=== PATIENT | male | born 1945 | race Caucasian/White ===

== ENCOUNTER 2017-10-05 06:06 | Inpatient (IN) | payer MEDICARE, BC ==
[~2017-10-05] VITALS: Ht 167.6 cm; Wt 117.5 kg
--- NOTE | ~2017-10-05 | PN ---
PATIENT:JASMYN MCKEON MEDICAL RECORD: [id number] LOCATION:MALINDA Albrecht112 ADMISSION DATE: 10/05/17 PROGRESS NOTE DATE OF SERVICE: 10/07/2017 SUBJECTIVE: The patient's case was discussed with staff. He has no new complaint. OBJECTIVE: The patient is in good behavioral control with limited insight about his condition. He tolerates his medicines well. ASSESSMENT: No change in diagnoses. PLAN: Current medicines have been reviewed. The patient has some grandiose ideas that sound very much delusional. 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 He would likely benefit from a mood stabilizer and I have prescribed Depakote at a dose of 500 mg twice daily. TRANSINT:[id number] Voice Confirmation ID: [id number] DOCUMENT ID: [id number] ONEYDA HAWTHORNE MD at 0822 CC: [id number] DICTATION DATE: 10/07/17 1208 LABORER/GRADE CHECK: 10/07/[address] [facility] [address] [place] [address]
--- NOTE | ~2017-10-05 | PN ---
PATIENT:JASMYN MCKEON MEDICAL RECORD: [id number] LOCATION:MALINDA Albrecht112 ADMISSION DATE: 10/05/17 PROGRESS NOTE DATE OF SERVICE: 10/11/2017 SUBJECTIVE: The patient again states he is anxious to go home. OBJECTIVE: As mentioned yesterday, the patient scored 14/30 on the [facility] Mental Status exam. This indicates a very severe level of impairment. The patient will require constant supervision and assistance with ordinary activities of daily living. On exam today, the patient's mood is fairly pleasant. Affect is shallow. Speech tends to be tangential and oblique at times. Content of thought is negative for overt psychosis. Sensorium unchanged. ASSESSMENT: No change in diagnosis. PLAN: 1. Staff will continue to coordinate with family regarding aftercare plans. 2. We will introduce Aricept. 3. Continue supportive therapy. 4. Possible discharge tomorrow. TRANSINT:[id number] Voice Confirmation ID: [id number] DOCUMENT ID: [id number] ARIANA PRICE III, MD at 2048 CC: [id number] DICTATION DATE: 10/11/17 1144 ZIPPER CUTTER: 10/11/17 1309 ADM IN [facility] [address] [place] [address]
--- NOTE | ~2017-10-05 | PSY ---
PATIENT NAME:JASMYN MCKEON MEDICAL RECORD: [id number] : 49 LOCATION:MALINDA Ambrocio1126 ADMISSION DATE: 10/05/17 ACCOUNT: [id number] PSYCHIATRIC EVALUATION DATE OF EVALUATION: 10/05/17 IDENTIFYING DATA: This is the first Prison admission for this 71-year-old white male. CHIEF COMPLAINT: "My claims I was going to kill her." HISTORY OF PRESENT ILLNESS: This patient presented to the Emergency Department at [facility]. Records from their documented the fact that the patient threatened to kill himself and threatened to "carve up" his 's face. The patient was disorganized and confused at the time of assessment at [facility] and was transferred here for evaluation and inpatient admission. The patient cannot give a very coherent history this morning. Apparently, he has been treated for depression in the past, but other details regarding his previous psychiatric history are not currently known. He states that he does live with his and that they have been for 30 years and that nothing like this has ever happened before. He states that she has suddenly begun making strange accusations against him. However, this is not consistent with the documented medical record. The patient did agree to come for admission voluntarily, but upon arriving here, he began to state that he wanted to leave immediately. Staff noted that he was very disheveled, confused, and disjointed in his speech. PAST MEDICAL HISTORY: The patient evidently has a past history of coronary artery disease as well as hyperlipidemia, hypertension, and type 2 diabetes as well as possible COPD. The patient had been previously treated with Cymbalta, but he states he is no longer taking this medication. ALLERGIES: INCLUDE IMDUR, METHYLPREDNISOLONE, AMIODARONE. FAMILY HISTORY: Noncontributory. 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 Initially, he stated that he had this occupation in [place], [place] and had not ever done this kind of work here in [place]. He later stated that he moved here 30 years ago and was a director microbiology in [place], but he did not specify where. He claims that he has 3 children with his , but "we only admit to 2 of them." He did not explain what he meant by this. The patient denies alcohol abuse or drug abuse. MENTAL STATUS: On exam, the patient is very disheveled. He seems confused about the purpose of the interview. As soon as he sits down (he walks with a walker), he asks if he can take his shirt off. Mood is somewhat anxious. Affect is peculiar and distant. Speech is tangential. The patient exhibits latency in his speech from time to time. Content of thought according to documentation is positive for recent suicidal and homicidal ideation. On sensorium testing, the patient is aware that he is in [facility] in [place]. He is not clear about the date. Concentration and intermediate recall both are very poor. DIAGNOSTIC IMPRESSION: AXIS I: Subacute delirium - rule out major depression - recurrent. AXIS II: Deferred. AXIS III: Hypertension, coronary artery disease, hyperlipidemia, gastroesophageal reflux disease, chronic obstructive pulmonary disease, type 2 diabetes. AXIS IV: Moderate. AXIS V: 36. PLAN: 1. The patient is admitted for further medical and psychiatric workup. 2. Diet and activities as tolerated. 3. Supportive therapy. TRANSINT:[id number] Voice Confirmation ID: [id number] DOCUMENT ID: [id number] ARIANA PRICE III, MD at 0932 CC: [id number] DICTATION DATE: 10/05/17 105 INFORMATION SECURITY MANAGER: 10/05/17 1212 [facility] IN [place] [id number] [place] [id number]
--- NOTE | ~2017-10-05 | PN ---
PATIENT:JASMYN MCKEON MEDICAL RECORD: [id number] LOCATION:MALINDA Mckeon ADMISSION DATE: 10/05/17 PROGRESS NOTE DATE OF SERVICE: 10/10/2017 SUBJECTIVE: The patient states he hopes he can go home soon. OBJECTIVE: The patient did undergo neuropsychological testing with Dr. Richards. He was administered the [facility] Mental Status exam. He did very poorly, scoring only 14 out of 30. In view of his high premorbid intelligence, this represents severe impairment. Recommendation is for him to remain in a supervised setting. Family will be meeting with staff tomorrow or the next day regarding discharge planning. On exam, mood is fairly pleasant. Affect is for the most part bland. Speech tends to be somewhat tangential at times. Content of thought is negative for overt psychosis. On sensorium testing, the patient is oriented to person and place, but not as to time. Intermediate and short-term recall as well as concentration show considerable deficits. ASSESSMENT: Alzheimer's dementia with behavioral disturbance. PLAN: 1. Continue current medication. 2. Continue supportive therapy. TRANSINT:[id number] Voice Confirmation ID: [id number] DOCUMENT ID: [id number] ARIANA PRICE III, MD at 2123 CC: [id number] DICTATION DATE: 10/10/17 1237 EDGER OPERATOR: 10/10/17 1429 ADM IN [place] [id number] [place] [address]
--- NOTE | ~2017-10-05 | PN ---
PATIENT:JASMYN MCKEON MEDICAL RECORD: [id number] LOCATION:MALINDA Albrecht112 ADMISSION DATE: 10/05/17 PROGRESS NOTE DATE OF SERVICE: 10/06/2017 SUBJECTIVE: The patient's case was discussed with staff. He has no new complaint. OBJECTIVE: The patient is in good behavioral control with limited insight about his condition. He generally tolerates his medicines well. He did not sleep well last night. ASSESSMENT: No change in diagnoses. PLAN: Current medicines have been reviewed. They will be maintained. I am going to start the patient on trazodone for sleep consolidation. TRANSINT:[id number] Voice Confirmation ID: [id number] DOCUMENT ID: [id number] ONEYDA HAWTHORNE MD at 1936 CC: [id number] DICTATION DATE: 10/06/17 1436 EXPEDITER SERVICE ORDER: 10/06/17 1504 ADM IN [place] [id number] [place] [id number]
--- NOTE | ~2017-10-05 | DS ---
PATIENT:JASMYN MCKEON :49 MEDICAL RECORD: [id number] DISCHARGE SUMMARY ADMISSION DATE: 10/05/17 DISCHARGE DATE: 10/12/17 DATE OF ADMISSION: 10/05/2017 DATE OF DISCHARGE: 10/12/2017 HISTORY: The patient was brought to the Emergency Department at [facility] by law enforcement. The patient had reportedly threatened to kill himself and also to assault his . The patient had wandered away from home and was subsequently apprehended. At the time of initial presentation, the patient was incapable of giving any kind of coherent history. Because of obvious cognitive deterioration and possible threat to self and others, the patient was admitted. For further details, please see previously dictated history. COURSE IN THE HOSPITAL: The patient was examined by Dr. Mayo. She noted the presence of sleep apnea, coronary artery disease, atrial fibrillation, hypertension, and arthritis. Following admission, the patient continued to show considerable confusion. He was started on Depakote for control of his mood swings and agitation. Initial dose was 250 mg twice a day, but this achieved a subtherapeutic blood level of only 21 and dose was advanced to 500 mg twice a day prior to discharge. The patient has a diagnosis of diabetes and was maintained on metformin 1000 mg twice a day. For his dementing symptoms, the patient was started on Aricept 10 mg daily. He was given trazodone 100 mg at bedtime for insomnia. Pepcid 20 mg daily for gastritis. He was also maintained on Plavix 75 mg daily, Crestor 20 mg daily, Colace 100 mg b.i.d., Pradaxa 150 mg b.i.d. The patient did undergo neuropsychological testing. He scored only 14 out of 30 on the [facility] Mental Status Exam, indicating a very severe level of impairment. Recommendation was made to the patient's family and associates that he be kept in a supervised situation on a [id number] basis. By the time of discharge, the patient was felt to be stable enough to return to a supervised setting under the care of family and others. FINAL DIAGNOSES: AXIS I: Alzheimer dementia with behavioral disturbance. AXIS II: No diagnosis. AXIS III: Hypertension, coronary artery disease, hyperlipidemia, gastroesophageal reflux disease, chronic obstructive pulmonary disease, type 2 diabetes. AXIS IV: Moderate. AXIS V: 45. PLAN: 1. The patient is discharged to care of family and in-home aides. 2. He is to follow up with his primary care physician. 3. Diet and activities as tolerated. 4. Family understands that the patient is to remain in a supervised setting at all times. TRANSINT:[id number] Voice Confirmation ID: [id number] DOCUMENT ID: [id number] DISCHARGE SUMMARY REPORT [id number] JASMYN MCKEON III, ARIANA Hobbs MD at 0948 CC: [id number] DICTATION DATE: 10/12/17 1201 SYSTEMS MANAGEMENT CONSULTANT: 10/12/17 1252 DIS IN 10/12/17 [facility] [address] [place] [address]
--- NOTE | ~2017-10-05 | PN ---
PATIENT:JASMYN MCKEON MEDICAL RECORD: [id number] LOCATION:MALINDA Mckeon ADMISSION DATE: 10/05/17 PROGRESS NOTE DATE OF SERVICE: 10/09/2017 SUBJECTIVE: No new complaint. OBJECTIVE: Staff report the patient has been fairly cooperative. They notice a number of compulsive behaviors such as taking a shower 4 times a day. On exam, the patient is friendly and pleasant. He continues to exhibit confusion in terms of short term recall and concentration. Affect is somewhat peculiar. Content of thought shows moderate grandiose ideation. The patient is oriented to person and to place. ASSESSMENT: No change in diagnosis. PLAN: 1. Maintain current medications. 2. We will get neuropsychological testing. TRANSINT:[id number] Voice Confirmation ID: [id number] DOCUMENT ID: [id number] ARIANA PRICE III, MD at 0435 CC: [id number] DICTATION DATE: 10/09/17 1159 ASSEMBLER CARDS AND ANNOUNCEMENTS: 10/09/17 1222 ADM IN [place] [address] [place] [address]
[2017-10-05] MEDS ORDERED: BUMEX 1 MG TAB1 MG PO (09:26)
[2017-10-05] MEDS ORDERED: CLOTRIMAZOLE-BE30 ML TOPICAL (09:27)
[2017-10-05] MEDS ORDERED: PLAVIX75 MG PO (09:27)
[2017-10-05] MEDS ORDERED: CINNAMON500 MG PO (09:27)
[2017-10-05] MEDS ORDERED: COENZYME Q10100 MG PO (09:28)
[2017-10-05] MEDS ORDERED: ARTHROTEC 501 TAB.EC PO (09:28)
[2017-10-05] MEDS ORDERED: AVODART0.5 MG PO (09:29)
[2017-10-05] MEDS ORDERED: COLACE100 MG PO (09:29)
[2017-10-05] MEDS ORDERED: CYMBALTA60 MG PO (09:29)
[2017-10-05] MEDS ORDERED: INVOKANA300 MG PO (09:30)
[2017-10-05] MEDS ORDERED: PEPCID20 MG PO (09:30)
[2017-10-05] MEDS ORDERED: TRILIPIX135 MG PO (09:30)
[2017-10-05] MEDS ORDERED: LYRICA300 MG PO (09:34)
[2017-10-05] MEDS ORDERED: LIDOCAINE50 GM TOPICAL (09:34)
[2017-10-05] MEDS ORDERED: METFORMIN HCL500 M1 PO (09:35)
[2017-10-05] MEDS ORDERED: TOPROL XL100 MG PO (09:36)
[2017-10-05] MEDS ORDERED: NITROQUICK0.4 MG SL (09:37)
[2017-10-05] MEDS ORDERED: CRESTOR20 MG PO (09:38)
[2017-10-05] MEDS ORDERED: PRADAXA150 MG PO (09:38)
[2017-10-05] MEDS ORDERED: VENTOLIN HFA18 GM INH (09:38)
[2017-10-05] MEDS ORDERED: AMBIEN10 MG PO (09:39)
[2017-10-05 09:57] VITALS: BP 163/88
[2017-10-05 10:11] VITALS: BMI 42.0
[2017-10-05 11:15] LABS: BASOPHILS 0.4 % (0-2); EOSINOPHILS 0.7 % (0-7); HEMOGLOBIN 10.8 g/dL (13.5-17.5); IMMATURE GRANULOCYTES 0.4 % (0-5); LYMPHOCYTES 12.3 % (15-50); MCH 23.1 pg (26.0-34.0); MCHC 30.9 g/dL (31.0-37.0); MCV 74.8 fL (80.0-100.0); MEAN PLATELET VOLUME 9.6 fL (7.4-10.4); NEUTROPHILS 83.2 % (40-80); PLATELET COUNT 142 10x3/uL (130-400); RBC 4.68 10x6/uL (4.20-6.10); RDW 22.9 % (11.5-14.5); WBC 5.6 10x3/uL (4.8-10.8)
[2017-10-05 11:29] LABS: ALBUMIN 2.9 g/dL (3.4-5.0); ALKALINE PHOSPHATASE 61 U/L (46-116); ALT (SGPT) 19 U/L (10-68); BILIRUBIN - TOTAL 0.53 mg/dL (0.2-1.3); CALC OSMOLALITY 279 mosm/kg (275-300); CALCIUM 8.8 mg/dL (8.5-10.1); CARBON DIOXIDE 21.3 mmol/L (21.0-32.0); CHLORIDE - SERUM 100 mmol/L (98-107); CHOL - HDL RATIO 5.5 ratio (2.3-4.9); CHOLESTEROL, TOTAL 197 mg/dL (0-200); CREATININE - SERUM 0.8 mg/dL (0.6-1.3); GLUCOSE 239 mg/dL (74-106); HDL CHOLESTEROL 36 mg/dL (32-96); LDL CHOLESTEROL 128 mg/dL (0-100); LDL-HDL RATIO 3.6 ratio (1.5-3.5); POTASSIUM - SERUM 3.5 mmol/L (3.5-5.1); PROTEIN - SERUM 7.3 g/dL (6.4-8.2); SODIUM 137 mmol/L (136-145); THYROID STIMULATING HORMONE 1.51 uIU/mL (0.36-3.74); TRIGLYCERIDE 166 mg/dL (30-200); UREA NITROGEN 8 mg/dL (7-18); eGFR NON AFRICAN AMERICAN > 90 mL/min (90-120)
[2017-10-05 12:39] VITALS: BP 163/88; BMI 42.0
[2017-10-05 14:49] VITALS: Ht 167.6 cm; Wt 117.5 kg
[2017-10-05 20:33] VITALS: BP 145/65
[2017-10-06 07:34] LABS: RAPID PLASMA REAGIN Non Reactive (Non Reactive)
[2017-10-06 07:50] VITALS: BP 106/66
[2017-10-06 08:20] LABS: FOLATE (FOLIC ACID) - SERUM 8.7 ng/mL (>3.0)
[2017-10-06 09:16] LABS: VITAMIN D 25 HYDROXY 37.4 ng/mL (30.0-100.0)
[2017-10-07 07:44] VITALS: BP 147/68
[2017-10-07 19:56] VITALS: BP 105/66
[2017-10-08 07:23] VITALS: BP 158/83
[2017-10-08 19:55] VITALS: BP 130/79
[2017-10-09 07:00] VITALS: BP 118/61
[2017-10-09 21:02] VITALS: BP 118/67
[2017-10-10 07:49] VITALS: BP 120/67
[2017-10-10 15:59] VITALS: BP 103/65
[2017-10-10 20:25] VITALS: BP 119/72
[2017-10-11 09:30] VITALS: BP 112/80
[2017-10-11] MEDS ORDERED: NIFEREX-150 CAP1 CA3 PO (11:58)
[2017-10-11] MEDS ORDERED: PRADAXA150 MG PO (11:58)
[2017-10-11] MEDS ORDERED: Aricept PO (11:58)
[2017-10-11] MEDS ORDERED: DESERYL100 MG PO (11:59)
[2017-10-11] MEDS ORDERED: DEPAKOTE250 MG PO (11:59)
[2017-10-11] MEDS ORDERED: GLUCOPHAGE500 MG PO (12:00)
[2017-10-11 20:02] VITALS: BP 138/72
[2017-10-12 08:03] VITALS: BP 148/80
[2017-10-12] MEDS ORDERED: DEPAKOTE250 MG PO (11:55)
== END 2017-10-12 13:00 | disposition home or self-care (01) | DRG 57 ==
LOC: D.PSYCH 06:06
PROVIDERS: Psychiatry & Neurology Psychiatry
DX: G30.9 Alzheimer's disease, unspecified (principal); F02.81 Dementia in other diseases classified elsewhere, unspecified severity, with behavioral disturbance; R45.851 Suicidal ideations; Z68.41 Body mass index [BMI] 40.0-44.9, adult; F32.9 Major depressive disorder, single episode, unspecified; E11.40 Type 2 diabetes mellitus with diabetic neuropathy, unspecified; E78.5 Hyperlipidemia, unspecified; I25.10 Atherosclerotic heart disease of native coronary artery without angina pectoris; Z95.1 Presence of aortocoronary bypass graft; I10 Essential (primary) hypertension; K21.9 Gastro-esophageal reflux disease without esophagitis; J44.9 Chronic obstructive pulmonary disease, unspecified; I48.91 Unspecified atrial fibrillation; E66.01 Morbid (severe) obesity due to excess calories; G47.00 Insomnia, unspecified; D64.9 Anemia, unspecified; M19.90 Unspecified osteoarthritis, unspecified site; G47.33 Obstructive sleep apnea (adult) (pediatric)

== ENCOUNTER 2019-12-16 19:00 | Inpatient (IN) | payer MEDICARE, BC ==
[~2019-12-16] VITALS: Ht 162.6 cm; Wt 85.1 kg
[~2019-12-16 19:00] MED LIST: AMBIEN10 MG PO; ARTHROTEC 501 TAB.EC PO; AVODART0.5 MG PO; Aricept PO; BUMEX 1 MG TAB1 MG PO; CINNAMON500 MG PO; CLOTRIMAZOLE-BE30 ML TOPICAL; COENZYME Q10100 MG PO; COLACE100 MG PO; CRESTOR20 MG PO; CYMBALTA60 MG PO; DEPAKOTE250 MG PO; DESERYL100 MG PO; GLUCOPHAGE500 MG PO; INVOKANA300 MG PO; LIDOCAINE50 GM TOPICAL; LYRICA300 MG PO; METFORMIN HCL500 M1 PO; NIFEREX-150 CAP1 CA3 PO; NITROQUICK0.4 MG SL; PEPCID20 MG PO; PLAVIX75 MG PO; PRADAXA150 MG PO; TOPROL XL100 MG PO; TRILIPIX135 MG PO; VENTOLIN HFA18 GM INH
[2019-12-16] MEDS ORDERED: DEPAKOTE250 MG PO (19:21)
[2019-12-16] MEDS ORDERED: CARDIZEM30 MG PO (19:21)
[2019-12-16] MEDS ORDERED: AZELASTINE137 MCG/0. NASAL (19:22)
[2019-12-16] MEDS ORDERED: METFORMIN HCL500 M1 PO (19:25)
[2019-12-16] MEDS ORDERED: IPRAT-ALBUT 0.5-3 ML UPD (19:26)
[2019-12-16] MEDS ORDERED: LANTUS INS100 UNITS/ SC (19:27)
[2019-12-16] MEDS ORDERED: AVODART0.5 MG PO (19:27)
[2019-12-16] MEDS ORDERED: CYMBALTA60 MG PO (19:28)
[2019-12-16] MEDS ORDERED: MYCOSTATIN CREA15 GM TOPICAL (19:33)
[2019-12-16] MEDS ORDERED: KLOR-CON M2020 MEQ PO (19:34)
[2019-12-16] MEDS ORDERED: PHENAZOPYRIDIN100 MG PO (19:34)
[2019-12-16] MEDS ORDERED: LYRICA300 MG PO (19:35)
[2019-12-16] MEDS ORDERED: BACTRIM DS TAB1 EAC1 PO (19:37)
[2019-12-16] MEDS ORDERED: TESTOSTERONE CYPIONA IM (19:39)
[2019-12-16 20:10] VITALS: BP 154/83
[2019-12-16 20:40] VITALS: BP 154/83
--- NOTE | 2019-12-16 21:55 | NUR ---
NEW ADMIT TO DOCTOR MARINE FROM [facility] RELATED TO ALTERED MENTAL STATUS AND AGGRESSION. RECEIVED VIA EMS. CALM AND COOPERATIVE UPON ARRIVAL. NO SIGNS OF AGGRESSION. COOPERATIVE WITH ADMIT ASSESSMENT. DENIES ANY THOUGHTS OF SELF HARM AT THIS TIME. HE DOES REFERENCE A TIME WHEN HE PUT A CORD AROUND HIS NECK BUT STATES HE DID IT FOR ATTENTION. HE REQUEST TO A CODE STATUS OF DNR. ADMIT CONSENT RECIEVED FROM "HARSHA". SHE STATES HE HAS BEEN DECLINING RECENTLY. NOT TAKING MEDS. PATIENT IS RESTING IN BED WITH EYES CLOSED AT THIS TIME.
[2019-12-17 00:50] LABS: BILIRUBIN NEGATIVE (NEGATIVE); GLUCOSE 1000 mg/dL (NEGATIVE); KETONE NEGATIVE (NEGATIVE); NITRITE NEGATIVE (NEGATIVE); UROBILINOGEN NORMAL (NORMAL)
--- NOTE | 2019-12-17 02:14 | NUR ---
RESTLESS. NOT SLEEPING.
[2019-12-17 06:21] LABS: BASOPHILS 0.2 % (0-2); EOSINOPHILS 1.3 % (0-7); HEMATOCRIT 37.7 % (42.0-54.0); HEMOGLOBIN 11.3 g/dL (13.5-17.5); IMMATURE GRANULOCYTES 0.2 % (0-5); LYMPHOCYTES 34.2 % (15-50); MCV 86.9 fL (80.0-100.0); MEAN PLATELET VOLUME 9.5 fL (7.4-10.4); MONOCYTES 7.7 % (2-11); NEUTROPHILS 56.4 % (40-80); PLATELET COUNT 128 10x3/uL (130-400); RBC 4.34 10x6/uL (4.20-6.10); WBC 4.5 10x3/uL (4.8-10.8)
[2019-12-17 07:40] LABS: ALBUMIN 3.4 g/dL (3.4-5.0); ALKALINE PHOSPHATASE 66 U/L (30-120); ALT (SGPT) 15 U/L (10-68); BILIRUBIN - TOTAL 0.37 mg/dL (0.2-1.3); CALC OSMOLALITY 285 mosm/kg (275-300); CALCIUM 9.1 mg/dL (8.5-10.1); CARBON DIOXIDE 26.5 mmol/L (21.0-32.0); CHLORIDE - SERUM 108 mmol/L (98-107); CHOL - HDL RATIO 2.6 ratio (2.3-4.9); CHOLESTEROL, TOTAL 142 mg/dL (0-200); HDL CHOLESTEROL 54 mg/dL (32-96); LDL CHOLESTEROL 61 mg/dL (0-100); LDL-HDL RATIO 1.1 ratio (1.5-3.5); POTASSIUM - SERUM 3.6 mmol/L (3.5-5.1); PROTEIN - SERUM 6.4 g/dL (6.4-8.2); SODIUM 144 mmol/L (136-145); THYROID STIMULATING HORMONE 0.76 uIU/mL (0.36-3.74); TRIGLYCERIDE 139 mg/dL (30-200); UREA NITROGEN 7 mg/dL (7-18); VALPROIC ACID (DEPAKOTE) 36.1 ug/mL (50.0-100.0); eGFR NON AFRICAN AMERICAN 78 mL/min (90-120)
[2019-12-17 07:41] LABS: GLUCOSE 108 mg/dL (74-106)
[2019-12-17 11:40] VITALS: BP 134/53
--- NOTE | 2019-12-17 12:25 | NUR ---
RECEIVED IN HALLWAY OUTSIDE OF NURSES STATION. CALM AND COOPERATIVE WITH CARE AND ASSESSMENT. NO AGITATION OR AGGRESSION. REDIRECT AND REORIENT NEEDED. EATING AT THIS TIME. CONTINUE PLAN OF CARE.
[2019-12-17 14:56] VITALS: Ht 162.6 cm; Wt 85.1 kg
[2019-12-17 20:53] VITALS: BP 142/70
--- NOTE | 2019-12-17 23:27 | NUR ---
RECEIVED IN DAYROOM. SITTING IN A CHAIR WITH PEERS AT HIS SIDE. CALM AND COOPERATIVE WITH CARE AND ASSESSMENT. NO SIGNS OF AGGRESSION. REDIRECT AND REORIENT NEEDED. RESTING IN BED WITH EYES CLOSED AT THIS TIME. CONTINUE PLAN OF CARE.
[2019-12-18 07:14] LABS: RAPID PLASMA REAGIN Non Reactive (Non Reactive)
--- NOTE | 2019-12-18 08:14 | NUR ---
The patient is awake and alert he is pleasant and he has not shown any aggression this am. Provide prescribed meds. Monitor for medication compliance. He ambulates independently. He has poor insight into his situation. Continue POC.
[2019-12-18 09:19] VITALS: BP 118/77
--- NOTE | 2019-12-18 15:00 | NUR ---
Nutrition Follow-up: Diet: Diabetic PO intake: 0-100% x 2 HS snacks recorded Last BM: none since admit x 2 days. WT: 187.6# (12/17/19) Meds noted: metformin, lantus. Labs noted: POC Glu 194(H) Recommend continue current diet. Offer oral nutrition supplements if PO intake poor. RD following.
[2019-12-18 20:03] VITALS: BP 139/72
--- NOTE | 2019-12-19 03:55 | NUR ---
B.) PT IS ALERT AND ORIENTED TO SELF AND PLACE. HE IS ABLE TO AMBULATE WITHOUT ASSIST. HE IS DEMANDING AT TIMES AND COMPLAINS OF TWO PILONIDAL CYSTS, A CYST UNDER HIS LEFT ARMPIT AND A SORE SPOT ON HIS GROIN AREA. HE LATER DEMANDED THAT WE REMOVE THE BATTERY FROM HIS CLOCK IT IS TOO LOUD. I.) PROVIDED PM MEDICATIONS PRESCRIBED. REDIRECT OFTEN. R.) COMPLIANT WITH ALL MEDICATIONS. DIFFICULT TO REDIRECT. P.) WILL CONTINUE TO MONITOR.
--- NOTE | 2019-12-19 08:54 | PSY ---
PATIENT NAME:JASMYN MCKEON MEDICAL RECORD: [id number] : 49 LOCATION:MALINDA Albrecht1135 ADMISSION DATE: 12/16/19 ACCOUNT: [id number] PSYCHIATRIC EVALUATION DATE OF EVALUATION: 12/18/19 The patient was admitted on 12/16/2019. Date of evaluation was 12/17/2019. IDENTIFYING DATA: The patient is a 73-year-old male who appears about his stated age, who was referred to us from [facility]. CHIEF COMPLAINT: Suicidal gesture. HISTORY OF PRESENT ILLNESS: It was reported that the patient had an accidental overdose and had been observed with having a decreased mental decline, increased confusion, and hallucinations, agitation, and aggressiveness. It was observed while the patient was in the ICU being monitored that he wrapped a call light cord around himself and then at one point was observed hitting himself with the call light pillow. During his stay there, he was agitated, restless, was yelling out, getting out of bed repeatedly, wanting to throw himself out the window and then actually had tried to choke himself twice by wrapping a blood pressure cord around his neck and he used a call light to his forehead until it was taken away. The overdose appeared to be most likely benzodiazepines. This patient was found unresponsive by the family in the morning. The patient stated that he had taken four 1 mg Ativan tablets. The patient report indicates that he was lethargic on arrival to the ER and he was given some Narcan with some improvement and then was started on BiPAP and transferred to ICU. 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 PAST MEDICAL HISTORY: The patient has a history of atrial fib, CAD, DM, GERD, hypertension, ALD, arthritis, pseudocholinesterase deficiency, and drug overdose. PAST PSYCHIATRIC HISTORY: The patient reports that he does have a history of anxiety and depression. FAMILY HISTORY: The patient has a family history of lung cancer, heart disease, hypertension, diabetes, and lung cancer. ALLERGIES: IMDUR AND MEDROL. TRAUMA: The patient denies any sexual, emotional, or physical abuse. CURRENT MEDICATIONS: Include, Aricept, Pradaxa, trazodone, Bumex, Plavix, Trilipix, Toprol-XL, NitroQuick, Crestor, Ventolin HFA, Depakote, Cardizem, Glucophage, DuoNeb, insulin 25 units subQ daily, Avodart, Cymbalta, Mycostatin cream, potassium chloride, Lyrica, and testosterone 1 mL IM every 21 days. SOCIAL HISTORY: The patient states that he is . 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 He has 1 grandchild age 21 that lives with him. 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 The patient denies any alcohol, smoking, or recreational drug use. MENTAL STATUS EXAM: The patient is alert and oriented to person, place, time, and situation. The patient's speech is low rate, low tone, low volume. His eye contact is good. His posture is within normal limits. There is some evidence of psychomotor agitation. His mood is depressed and anxious. His affect is flat, blunt, and narrow in range. The patient has some suicidal ideation, does not want to disclose the plan. The patient denies any homicidal ideation or auditory or visual hallucinations. The patient does not exhibit any delusional thought. His general fund of knowledge appears to be appropriate for his education level. His digit span forward is 5; digit span backward is 3. Prominent interpretation is mentally abstract. Judgment and insight are poor. Impulsivity is high. His memory is fair for recent and remote events. His strengths are his ability to communicate his needs. His weakness is his poor psychosocial support and isolation, financial stressors. Assets: Ability to communicate needs Liability: Chronic psychosocial stressors ASSESSMENT: AXIS I: Altered mental status. Major depression, recurrent, severe. AXIS II: None. AXIS III: Arthritis, hypertension, CABG, atrial fib, angina, CAD, dyslipidemia, diabetes, lithotripsy. AXIS IV: Severe stressors, financial and social. AXIS V: Global assessment of functioning is 30. PLAN: At this time, the patient is going to be admitted to the hospital secondary to his aggressive, agitated, confused, and suicidal ideation associated with altered mental status. He will be comprehensively evaluated from both a medical, psychological, and social standpoint. He will be treated with both mood stabilizing and memory enhancing medications. His long-term prognosis is guarded. Dictated By: Elizabeth Huertas APN I have interviewed/examined the above patient and agree with these documented findings. TRANSINT:[id number] Voice Confirmation ID: [id number] DOCUMENT ID: [id number] Dictated By: ELIZABETH HUERTAS I have interviewed/examined the above patient and agree with these documented findings. ONEYDA HAWTHORNE MD at 0854 at 1128 CC: [id number] DICTATION DATE: 12/18/191932 HOSPICE ART THERAPIST: 12/19/19 0018 ADM IN [facility] [address] [place] [address]
[2019-12-19 09:42] VITALS: BP 127/69
--- NOTE | 2019-12-19 13:49 | NUR ---
The patient is awake and alert, he is pleasant and calm. He is interacting with staff and peers and enjoys telling jokes. He denies S.I. He did not sleep well last night. Provide prescribed meds. The patient is compliant with meds. Continue POC.
[2019-12-19 20:19] VITALS: BP 120/75
--- NOTE | 2019-12-20 01:24 | NUR ---
B.) PT IS ALERT AND ORIENTED X4. HE IS CALM AND COOPERATIVE WITH STAFF. HE IS ABLE TO VOICE NEEDS AND WANTS. HE IS ABLE TO AMBULATE WITHOUT ASSIST. I.) PROVIDED PM MEDICATIONS PRESCRIBED. REDIRECT NEEDED. R.) COMPLIANT WITH ALL MEDICATIONS. EASY TO REDIRECT. P.) WILL CONTINUE TO MONITOR.
--- NOTE | 2019-12-20 13:53 | NUR ---
The patient is awake and alert he is calm and he enjoys speaking with staff and the other patients. He ambulates well. 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 He told this nurse he is getting false teeth and he plans to get them soon. Provide prescribed meds. The patient is compliant with meds. Continue POC.
[2019-12-20 14:10] VITALS: BP 111/48
[2019-12-20 20:08] VITALS: BP 119/65
--- NOTE | 2019-12-20 23:20 | NUR ---
PATIENT RECEIVED IN DAYROOM, COMPLIANT WITH MEDS. DENIES S/I. MAKES ALL NEEDS KNOWN. NOT CONFUSED. WILL FOLLOW POC
--- NOTE | 2019-12-21 07:59 | NUR ---
The patient is awake and alert, he is pleasant and calm. He has poor insight into his situation. He has some noted confusion, he has recall of person, place, and time, but he is repetitive in telling some of his sentences. He ambulates independently. Provide prescribed meds. The patient is compliant with meds. He is interactive with staff and peers. Continue POC.
[2019-12-21 09:54] VITALS: BP 125/78
[2019-12-21 20:00] VITALS: BP 102/73
--- NOTE | 2019-12-21 21:50 | NUR ---
RECEIVED IN DAYROOM. SITTING IN A CHAIR WITH PEERS AT HIS SIDE. CALM AND COOPERATIVE WITH CARE AND ASSESSMENT. NO SIGNS OF AGGRESSION. REDIRECT AND REORIENT NEEDED. CONTINUES TO SIT CALMLY IN DAYROOM. CONTINUE PLAN OF CARE.
[2019-12-22 09:18] VITALS: BP 99/60
--- NOTE | 2019-12-22 10:02 | NUR ---
The patient is awake and alert, he denies suicide, but he remains down about COVID-19 interrupting his entire life. He has poor insight into his situation. Provide prescribed meds. He is compliant with meds. He refused his nasal spray. Checked his blood sugar it was 118 and he refused his Lantus. Continue monitoring his mood and behavior. Continue POC.
[2019-12-22 20:06] VITALS: BP 124/63
--- NOTE | 2019-12-22 20:06 | NUR ---
RECEIVED IN DAYROOM. SITTING IN A CHAIR WITH PEERS AT HIS SIDE. CALM AND COOPERATIVE WITH CARE AND ASSESSMENT. NO SIGNS OF AGGRESSION. REDIRECT AND REOREINT NEEDED. CONTINUES TO SIT CALMLY IN DAYROOM. CONTINUE PLAN OF CARE.
--- NOTE | 2019-12-23 12:00 | NUR ---
RECEIVED IN HALLWAY OUTSIDE OF NURSES STATION. CALM AND COOPERATIVE WITH CARE AND ASSESSMENT. NO AGGRESSIVE BEHAVIOR. NO EXIT SEEKING BEHAVIOR. REDIRECT AND REORIENT NEEDED. EATING AT THIS TIME. CONTINUE PLAN OF CARE.
[2019-12-23 19:51] VITALS: BP 107/66
--- NOTE | 2019-12-23 21:09 | NUR ---
RECEIVED IN DAYROOM. MOVING ABOUT IN A WHEELCAHIR SOCIALIZING WITH STAFF AND PEERS. IN GOOD SPIRITS. NO STATEMENTS OF SELF HARM VOICED. ENCOURAGE TO EXPRESS NEEDS. CONTINUES TO BE SOCIAL WITH STAFF AND PEERS. CONTINUE PLAN OF CARE.
[2019-12-24 07:59] LABS: BILIRUBIN NEGATIVE (NEGATIVE); GLUCOSE NEGATIVE (NEGATIVE); KETONE NEGATIVE (NEGATIVE); NITRITE NEGATIVE (NEGATIVE); SPECIFIC GRAVITY 1.015 (1.005-1.020)
[2019-12-24 10:00] VITALS: BP 104/74
--- NOTE | 2019-12-24 12:00 | NUR ---
RECEIVED IN HALLWAY OUTSIDE OF NURSES STATION. CALM AND COOPERATIVE WITH CARE AND ASSESSMENT. NO AGGRESSIVE BEHAVIOR. REDIRECT AND REORIENT NEEDED. EATING AT THIS TIME. CONTINUE PLAN OF CARE.
--- NOTE | 2019-12-24 15:08 | PN ---
PATIENT:JASMYN MCKEON MEDICAL RECORD: [id number] LOCATION:MALINDA Albrecht113 ADMISSION DATE: 12/16/19 PROGRESS NOTE DATE OF SERVICE: 12/23/2019 SUBJECTIVE: The patient's case was discussed with staff. He has no new complaint. OBJECTIVE: The patient has a mildly depressed mood. He denies he would seek to harm himself. He generally is tolerating his medicines well. ASSESSMENT: Major depression. PLAN: The patient denies that he would seek to harm himself. I am going to review medications and we will discontinue the Zoloft and increase the dose of Cymbalta. TRANSINT:[id number] Voice Confirmation ID: [id number] DOCUMENT ID: [id number] ONEYDA HAWTHORNE MD at 1508 CC: [id number] DICTATION DATE: 12/23/19 1541 HYDRAULIC PUNCH PRESS OPERATOR: 12/23/19 8757 ADM IN [facility] [address] [place] [address]
[2019-12-24 20:11] VITALS: BP 114/62
--- NOTE | 2019-12-25 14:20 | NUR ---
The patient is awake and alert, he is pleasant and alert. He ambulates independently. He has not shown any aggression. He has not made any statement about suicidal ideations. 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 Provide prescribed meds. The patient is compliant with meds. Continue POC.
--- NOTE | 2019-12-25 15:44 | NUR ---
Nutrition Follow-up: Diet: Diabetic PO intake: 100% x all Last BM: 12/23/19. Wt: 187.6# (12/22/19); Admit wt: 187.6# (12/17/19) Meds noted: metformin, lantus. Labs noted: 171(H) Recommend continue current diet. RD following.
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
[2019-12-25 20:00] VITALS: BP 100/62
--- NOTE | 2019-12-25 21:02 | NUR ---
RECEIVED IN DAYROOM. SOCIALIZING WITH OTHER PATIENTS. CALM AND COOPERATIVE WITH CARE AND ASSESSMENT. PLEASANT. NO AGGRESSION. REDIRECT AND REORIENT NEEDED. PARTICIPATING IN GROUP AT THIS TIME. CONTINUE PLAN OF CARE.
[2019-12-26 10:11] VITALS: BP 117/76
--- NOTE | 2019-12-26 13:30 | NUR ---
KERRIE SPOKE TO PT'S VEENA ABOUT PT'S CONDITION AND PT'S MD NOT SIGNING THE PAPERS TO DEEM PT INCOMPETENT. KERRIE STATED PT'S MAIN DIAGNOSIS IS MAJOR DEPRESSION WHICH IS PRIMARY TO MILD DEMENTIA. 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 KERRIE EXPLAINED PT IS ORIENTED AND HAS CLEARED UP. KERRIE EDUCATED ON PT NEEDING MONITORING AND MEDICATION MANAGEMENT TO ENSURE PT IS TAKING THE RIGHT MEDICATIONS CORRECTLY. VEENA VERBALIZED UNDERSTANDING OF DISCUSSION. KERRIE SET DISCHARGE FOR TOMORROW AT 11. PT REFUSED OUTPATIENT TREATMENT AND WAS REFERRED BACK TO HIS PCP FOR MEDICATION MANAGEMENT.
--- NOTE | 2019-12-26 14:07 | NUR ---
SW ATTEMPTED TO CALL AND CONTACT ON FACESHEET TO DISCUSS DISCHARGE PLANS.
--- NOTE | 2019-12-26 16:51 | PN ---
PATIENT:JASMYN MCKEON MEDICAL RECORD: [id number] LOCATION:[facility] ADMISSION DATE: 12/16/19 PROGRESS NOTE DATE OF SERVICE: 12/25/2019 SUBJECTIVE: The patient's case was discussed with staff. He has no new complaint. OBJECTIVE: The patient is more cognizant today. He has limited insight about his social situation, but his cognition has improved and he is fully oriented. ASSESSMENT: 1. Major depression. 2. Mild dementia. PLAN: The patient is going to be maintained on current medications. If he continues to have an absence of suicidal thoughts, he will be discharged. TRANSINT:[id number] Voice Confirmation ID: [id number] DOCUMENT ID: [id number] ONEYDA HAWTHORNE MD at 1651 CC: [id number] DICTATION DATE: 12/25/19 171 TERADATA ARCHITECT: 12/25/192036 ADM IN [facility] [address] [place] [address]
[2019-12-26] MEDS ORDERED: Bumex PO (18:39)
[2019-12-26] MEDS ORDERED: TRICOR145 MG PO (18:39)
[2019-12-26] MEDS ORDERED: DONEPEZIL HCL10 MG PO (18:39)
--- NOTE | 2019-12-26 18:50 | NUR ---
IS ALERT AND ORIENTED.CALM AND PLEASANT.COMPLIANT WITH STAFF AND MEDS.AMBULATES.WILL CONTINUE WITH PLAN OF CARE,MONITOR FOR CHANGES AND SAFETY. NO BEHAVIORS OBSERVED.
[2019-12-26 19:36] VITALS: BP 110/53
--- NOTE | 2019-12-27 02:41 | NUR ---
B) Patient is alert and oriented to person and place, follows instruction, I) Administered scheduled medications as ordered, assisted with needs, R) Medication compliant, sleeping now P) Continue plan of care.
--- NOTE | 2019-12-27 08:31 | NUR ---
The patient is awake and alert, he is calm and pleasant he has poor insight into his situation. He denies SI, HI, or depression today. He is going home today per MD orders, faxed d/c paperwork to his PCP, will provide him written and verbal instructions about medications and after care appointment with his PCP. The patient has poor insight into his situation. Provide d/c instructions. Provide prescribed meds. The patient ambulates independently. Continue d/c plan.
[2019-12-27 10:11] VITALS: BP 104/62
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
--- NOTE | 2019-12-27 13:01 | PN ---
PATIENT:JASMYN MCKEON MEDICAL RECORD: [id number] LOCATION:[facility] ADMISSION DATE: 12/16/19 PROGRESS NOTE DATE OF SERVICE: 12/26/2019 SUBJECTIVE: The patient's case was discussed with staff. He has no new complaint. OBJECTIVE: The patient denies intent to harm himself or others. He is tolerating his medicines well. He has poor insight about his situation. He certainly has no acute thoughts of harming himself and is requesting discharge. The social service manager has met with and she is comfortable with him going home tomorrow. TRANSINT:[id number] Voice Confirmation ID: [id number] DOCUMENT ID: [id number] ONEYDA HAWTHORNE MD at 1301 CC: [id number] DICTATION DATE: 12/26/19 183 BLOCK CLEANER: 12/26/191 ADM IN [facility] [address] [place] [address]
== END 2019-12-27 12:00 | disposition home or self-care (01) | DRG 885 ==
LOC: D.PSYCH 19:00
PROVIDERS: Family Medicine; ADMIT Psychiatry & Neurology Psychiatry; ATTEND Psychiatry & Neurology Psychiatry
DX: F33.1 Major depressive disorder, recurrent, moderate (principal); R45.851 Suicidal ideations; B49 Unspecified mycosis; E11.9 Type 2 diabetes mellitus without complications; I25.10 Atherosclerotic heart disease of native coronary artery without angina pectoris; E78.5 Hyperlipidemia, unspecified; J44.9 Chronic obstructive pulmonary disease, unspecified; N40.0 Benign prostatic hyperplasia without lower urinary tract symptoms; I11.0 Hypertensive heart disease with heart failure; I50.9 Heart failure, unspecified; D64.9 Anemia, unspecified; L72.3 Sebaceous cyst; G47.00 Insomnia, unspecified; E11.40 Type 2 diabetes mellitus with diabetic neuropathy, unspecified; J30.9 Allergic rhinitis, unspecified; K21.9 Gastro-esophageal reflux disease without esophagitis